=== PATIENT | female | born 1985 | race Caucasian/White ===

== ENCOUNTER 2018-03-25 08:23 | Outpatient (CLI) | payer OTHER ==
[~2018-03-25 08:23] MED LIST: ALBU8.5H5 INH; OXYC-302 PO; PREN1TAB56 PO
[2018-03-25] MEDS ORDERED: LACT1CAP35 PO (08:53)
== END 2018-03-25 23:59 | disposition home or self-care (01) ==
LOC: STAR 08:23
PROVIDERS: ATTEND Surgery Plastic and Reconstructive Surgery
DX: Z02.9 Encounter for administrative examinations, unspecified (principal)

== ENCOUNTER 2018-04-01 10:11 | Observation (INO) | payer OTHER ==
[~2018-04-01] VITALS: Ht 170.2 cm; Wt 83.2 kg
[~2018-04-01 10:11] MED LIST changes: +LACT1CAP35 PO
[2018-04-01] MEDS ORDERED: LACTATED RINGERS 1,000 ML IV SCH ×3 (10:26→19:00)
[2018-04-01] MEDS ORDERED: GABAPENTIN 300 MG CAPSULE PO ONE (10:30)
[2018-04-01] MEDS ORDERED: ONDANSETRON ODT 8 MG PO ONE (10:30)
[2018-04-01] MEDS ORDERED: ACETAMINOPHEN 500 MG TABLET PO ONE (10:30)
[2018-04-01 10:44] VITALS: BP 109/77
[2018-04-01 11:19] LABS: HCG UR SG 1.025 (1.003-1.030)
[2018-04-01] MEDS ORDERED: BUPIVACAINE/PF 0.25% ONE (12:47)
[2018-04-01] MEDS ORDERED: BUPIVACAINE/PF-EPI 0.5% 1:200K ONE (12:47)
[2018-04-01] MEDS ORDERED: SCOPOLAMINE PATCH, 1.5MG PATCH.TD72 TD ONE (12:50)
[2018-04-01] MEDS ORDERED: FENTANYL PF 250 MCG/5ML ONE (12:52)
[2018-04-01] MEDS ORDERED: MIDAZOLAM 1 MG/ML, 2ML ONE (12:52)
[2018-04-01] MEDS ORDERED: FENTANYL PF 100 MCG/2ML IV PRN (13:00)
[2018-04-01] MEDS ORDERED: METOPROLOL 1 MG/ML, 5ML IV PRN (13:00)
[2018-04-01] MEDS ORDERED: PROCHLORPERAZINE 5 MG/ML, 2ML IV PRN (13:00)
[2018-04-01] MEDS ORDERED: PROMETHAZINE 25 MG/ML, 1ML IV PRN (13:00)
[2018-04-01] MEDS ORDERED: hydrALAzine 20 MG/ML, 1ML IV PRN (13:00)
[2018-04-01] MEDS ORDERED: MEPERIDINE/PF 25MG/0.5ML IVPush PRN (13:00)
[2018-04-01] MEDS ORDERED: PROCHLORPERAZINE 25 MG SUPP PR PRN (13:00)
[2018-04-01] MEDS ORDERED: KETOROLAC 30 MG/1 ML ONE (13:00)
[2018-04-01] MEDS ORDERED: DIAZEPAM 5 MG/ML, 2ML IVPush PRN (13:00)
[2018-04-01] MEDS ORDERED: HYDROmorphone 2 MG/ML, 1ML IVPush PRN (13:00)
[2018-04-01] MEDS ORDERED: DIPHENHYDRAMINE 50 MG/ML, 1ML IVPush PRN (13:00)
[2018-04-01] MEDS ORDERED: OXYcodone 5 MG/5 ML ORAL.SOL UDC PO PRN (13:00)
[2018-04-01] MEDS ORDERED: LABETALOL 5MG/ML, 20ML IV PRN (13:00)
[2018-04-01] MEDS ORDERED: LIDOCAINE 1%, 20ML ONE (13:04)
[2018-04-01] MEDS ORDERED: LIDOCAINE 1%-EPI 1:100K, 30ML ONE (13:17)
[2018-04-01] MEDS ORDERED: FENTANYL PF 100 MCG/2ML ONE (16:01)
[2018-04-01] MEDS ORDERED: ONDANSETRON 2MG/ML, 2ML ONE (16:04)
[2018-04-01] MEDS ORDERED: SUCCINYLCHOLINE 20 MG/ML, 10ML ONE (16:04)
[2018-04-01] MEDS ORDERED: CEFAZOLIN 1,000 MG ONE (16:04)
[2018-04-01] MEDS ORDERED: DEXAMETHASONE 4 MG/ML, 1ML ONE (16:04)
[2018-04-01] MEDS ORDERED: GLYCOPYRROLATE 0.2MG/1ML, 5ML ONE (16:04)
[2018-04-01] MEDS ORDERED: PROPOFOL 10 MG/ML, 20ML ONE (16:04)
[2018-04-01] MEDS ORDERED: ROCURONIUM 10MG/ML,5ML ONE (16:04)
[2018-04-01] MEDS ORDERED: NEOSTIGMINE 1 MG/ML, 10ML ONE (16:04)
[2018-04-01] MEDS ORDERED: OXYcodone 5 MG/5 ML ORAL.SOL UDC ONE (17:15)
[2018-04-01] MEDS ORDERED: MEPERIDINE/PF 25MG/ML,1ML ONE (17:15)
[2018-04-01] MEDS ORDERED: PROMETHAZINE 25 MG/ML, 1ML ONE (17:21)
[2018-04-01] MEDS ORDERED: LACTOBACILLUS CHEW TABLET PO SCH (21:00)
== END 2018-04-01 23:47 | disposition home or self-care (01) ==
LOC: OUT 10:11 → 4NOR 18:35 → OUT 19:13
PROVIDERS: ADMIT Surgery Plastic and Reconstructive Surgery; ATTEND Surgery Plastic and Reconstructive Surgery
DX: N62 Hypertrophy of breast (principal); J45.909 Unspecified asthma, uncomplicated; D24.1 Benign neoplasm of right breast; D24.2 Benign neoplasm of left breast
CPT/HCPCS: 19318; 81025; 88305; C1729; G0378; J0330; J0690; J1100; J1885; J2175; J2250; J2405; J2550; J2704; J2710; J3010; J3490; J7120; Q0162

== ENCOUNTER 2019-03-15 05:31 | Inpatient (IN) | payer OTHER ==
[~2019-03-15] VITALS: Ht 170.2 cm; Wt 97.7 kg
[2019-03-15] MEDS ORDERED: LACTATED RINGERS 1,000 ML IV SCH (05:34)
[2019-03-15 05:47] VITALS: BP 127/85
[2019-03-15] MEDS ORDERED: NEWBORN KIT ONE (05:52)
[2019-03-15] MEDS ORDERED: PREN-3 PO (05:55)
[2019-03-15] MEDS ORDERED: METOCLOPRAMIDE 5 MG/ML, 2ML IV ONE (06:00)
[2019-03-15] MEDS ORDERED: SODIUM CITRATE/CITRIC ACID 30 ML UDC PO ONE (06:00)
[2019-03-15] MEDS ORDERED: LACTATED RINGERS 1,000 ML IVBOLUS ONE (06:00)
[2019-03-15] MEDS ORDERED: METOCLOPRAMIDE 5 MG/ML, 2ML ONE (06:17)
[2019-03-15] MEDS ORDERED: SODIUM CITRATE/CITRIC ACID 30 ML UDC ONE (06:17)
[2019-03-15] MEDS ORDERED: OXYTOCIN 30U/ 0.9% NaCL 500ML 500 ML ONE (06:17)
[2019-03-15 06:25] LABS: BASOPHILS # (AUTO) 0.02 x10^3/uL (0-0.1); BASOPHILS % (AUTO) 0 % (0-1); EOSINOPHILS # (AUTO) 0.09 x10^3/uL (0-0.4); EOSINOPHILS % (AUTO) 1 % (1-7); LYMPHOCYTES # (AUTO) 1.76 x10^3/uL (1-3.4); LYMPHOCYTES % (AUTO) 26 % (22-44); MD NO; MEAN CORPUSCULAR HEMOGLOBIN 28.7 pg (27.0-34.8); MEAN CORPUSCULAR HGB CONC 33.3 g/dL (32.4-35.8); MEAN CORPUSCULAR VOLUME 86.1 fL (80-100); MEAN PLATELET VOLUME 8.3 fL (7.4-10.4); MONOCYTES # (AUTO) 0.74 x10^3/uL (0.2-0.8); MONOCYTES % (AUTO) 11 % (2-9); NEUTROPHILS # (AUTO) 4.26 x10^3/uL (1.8-6.8); NEUTROPHILS % (AUTO) 62 % (42-75); PLATELET COUNT 186 x10^3/uL (130-400); RED BLOOD COUNT 4.18 x10^6/uL (3.82-5.3); RED CELL DISTRIBUTION WIDTH 14.3 % (9.6-15.2)
[2019-03-15] MEDS ORDERED: FENTANYL PF 100 MCG/2ML ONE (07:08)
[2019-03-15] MEDS ORDERED: OXYTOCIN 10 UNITS/ML, 1ML ONE (08:14)
[2019-03-15] MEDS ORDERED: CEFAZOLIN 1,000 MG ONE (08:14)
[2019-03-15] MEDS ORDERED: DIPHENHYDRAMINE 50 MG/ML, 1ML ONE (08:25)
[2019-03-15] MEDS ORDERED: KETOROLAC 30 MG/1 ML ONE (08:25)
[2019-03-15] MEDS: OXYTOCIN 30U/ 0.9% NaCL 500ML 500 ML IV SCH ×2 (08:55→18:55)
[2019-03-15] MEDS: LACTATED RINGERS 1,000 ML IV SCH ×4 (08:55→18:55)
[2019-03-15] MEDS ORDERED: ACETAMINOPHEN 325 MG TABLET PO PRN (09:00)
[2019-03-15] MEDS ORDERED: METOCLOPRAMIDE 5 MG/ML, 2ML IV PRN (09:00)
[2019-03-15] MEDS ORDERED: ONDANSETRON 2MG/ML, 2ML IV PRN ×2 (09:00)
[2019-03-15] MEDS ORDERED: MEASLES,MUMPS&RUBELLA VACC/PF 0.5 ML SQ-VACC PRN (09:00)
[2019-03-15] MEDS ORDERED: RHOGAM FROM BLOOD BANK 1 NOTE EA IM/IV ONE (09:00)
[2019-03-15] MEDS ORDERED: OXYcodone IR 5MG TABLET PO PRN (09:00)
[2019-03-15] MEDS ORDERED: SIMETHICONE 80 MG CHEW TAB PO PRN (09:00)
[2019-03-15] MEDS ORDERED: DEXAMETHASONE 4 MG/ML, 1ML IV PRN (09:00)
[2019-03-15] MEDS ORDERED: PROMETHAZINE 25 MG/ML, 1ML IV PRN (09:00)
[2019-03-15] MEDS ORDERED: CALCIUM CARBONATE 500 MG TAB.CHEW PO PRN (09:00)
[2019-03-15] MEDS ORDERED: morphine SULFATE 10 MG/ML, 1ML IVPush PRN ×2 (09:00)
[2019-03-15] MEDS ORDERED: MISOPROSTOL 200 MCG TABLET PR PRN (09:00)
[2019-03-15] MEDS ORDERED: OXYcodone 5 MG/5 ML ORAL.SOL UDC PO PRN (09:00)
[2019-03-15] MEDS ORDERED: MORPHINE SULFATE 4 MG/ML, 1ML IVPush PRN (09:00)
[2019-03-15] MEDS ORDERED: LABETALOL 5MG/ML, 20ML IV PRN (09:00)
[2019-03-15] MEDS: PRENATAL VIT/IRON/FA 1 EACH TABLET PO SCH (09:00)
[2019-03-15] MEDS ORDERED: FENTANYL PF 100 MCG/2ML IV PRN (09:00)
[2019-03-15] MEDS ORDERED: OXYcodone 5 MG/5 ML ORAL.SOL UDC ONE (10:46)
[2019-03-15 11:15] VITALS: BP 108/68
[2019-03-15] MEDS: OXYcodone IR 5MG TABLET PO PRN ×3 (13:20→21:48)
[2019-03-15] MEDS: KETOROLAC 30 MG/1 ML IV PRN ×2 (14:53→20:41)
[2019-03-15 19:40] VITALS: BP 113/64
[2019-03-15] MEDS: DOCUSATE 100 MG CAPSULE PO PRN (20:42)
[2019-03-15 20:56] LABS: BASOPHILS # (AUTO) 0.02 x10^3/uL (0-0.1); BASOPHILS % (AUTO) 0 % (0-1); EOSINOPHILS # (AUTO) 0.11 x10^3/uL (0-0.4); EOSINOPHILS % (AUTO) 1 % (1-7); LYMPHOCYTES # (AUTO) 1.65 x10^3/uL (1-3.4); LYMPHOCYTES % (AUTO) 19 % (22-44); MD NO; MEAN CORPUSCULAR HEMOGLOBIN 29.2 pg (27.0-34.8); MEAN CORPUSCULAR HGB CONC 33.6 g/dL (32.4-35.8); MEAN CORPUSCULAR VOLUME 86.9 fL (80-100); MEAN PLATELET VOLUME 8.1 fL (7.4-10.4); MONOCYTES # (AUTO) 0.77 x10^3/uL (0.2-0.8); MONOCYTES % (AUTO) 9 % (2-9); NEUTROPHILS # (AUTO) 6.32 x10^3/uL (1.8-6.8); NEUTROPHILS % (AUTO) 71 % (42-75); PLATELET COUNT 152 x10^3/uL (130-400); RED BLOOD COUNT 3.49 x10^6/uL (3.82-5.3); RED CELL DISTRIBUTION WIDTH 13.9 % (9.6-15.2)
[2019-03-16] VITALS: BP 105/66
[2019-03-16] MEDS: LACTATED RINGERS 1,000 ML IV SCH ×5 (00:55→16:55)
[2019-03-16] MEDS: OXYcodone IR 5MG TABLET PO PRN ×6 (02:05→22:30)
[2019-03-16] MEDS: KETOROLAC 30 MG/1 ML IV PRN (03:06)
[2019-03-16 03:10] VITALS: BP 107/74
[2019-03-16] MEDS: OXYTOCIN 30U/ 0.9% NaCL 500ML 500 ML IV SCH ×2 (04:55→14:55)
[2019-03-16 07:00] VITALS: BP 109/72
[2019-03-16] MEDS: DOCUSATE 100 MG CAPSULE PO PRN ×2 (10:13→22:29)
[2019-03-16] MEDS: IBUPROFEN 600 MG TABLET PO PRN ×2 (10:13→16:39)
[2019-03-16] MEDS: PRENATAL VIT/IRON/FA 1 EACH TABLET PO SCH (10:13)
[2019-03-16] MEDS: ACETAMINOPHEN 325 MG TABLET PO PRN ×2 (18:25→22:29)
[2019-03-16 19:15] VITALS: BP 101/64
[2019-03-17] MEDS: OXYTOCIN 30U/ 0.9% NaCL 500ML 500 ML IV SCH (00:55)
[2019-03-17] MEDS: LACTATED RINGERS 1,000 ML IV SCH ×2 (00:55)
[2019-03-17] MEDS: IBUPROFEN 600 MG TABLET PO PRN (01:50)
[2019-03-17] MEDS: OXYcodone IR 5MG TABLET PO PRN ×2 (03:02→08:29)
[2019-03-17] MEDS: ACETAMINOPHEN 325 MG TABLET PO PRN ×3 (03:02→12:09)
[2019-03-17 07:45] VITALS: BP 104/70
[2019-03-17] MEDS: DOCUSATE 100 MG CAPSULE PO PRN (08:28)
[2019-03-17] MEDS: PRENATAL VIT/IRON/FA 1 EACH TABLET PO SCH (08:28)
[2019-03-17] MEDS ORDERED: IBUP-1222 PO (11:23)
[2019-03-17] MEDS ORDERED: OXYC5CAP2 PO (11:25)
== END 2019-03-17 12:18 | disposition home or self-care (01) | DRG 788 ==
LOC: LDIP 05:31 → 2NW 11:20
PROVIDERS: ADMIT Obstetrics & Gynecology; ATTEND Obstetrics & Gynecology
PROC: 10D00Z1 Extraction of Products of Conception, Low, Open Approach (ICD-10-PCS; principal; 2019-03-15)
DX: O34.211 Maternal care for low transverse scar from previous cesarean delivery (principal); O99.52 Diseases of the respiratory system complicating childbirth; J45.909 Unspecified asthma, uncomplicated; Z3A.39 39 weeks gestation of pregnancy; Z37.0 Single live birth
CPT/HCPCS: 36415; 85025; 86592; 86850; 86900; G0378; J0690; J1885; J3010; J1200; J2590; J2765; J7120

== ENCOUNTER → 2020-05-14 | Outpatient (CLI) | payer OTHER ==
[~2020-05-14] MED LIST changes: +IBUP-1222 PO; +LIDOCAINE 1%, 10ML ONE; -OXYC-302 PO; +OXYC1TAB14 PO; +OXYC5CAP2 PO; +PREN-3 PO
== END | disposition home or self-care (01) ==
LOC: RAD 09:46
PROVIDERS: ATTEND Family Medicine
DX: E04.1 Nontoxic single thyroid nodule (principal); Z88.0 Allergy status to penicillin; Z79.899 Other long term (current) drug therapy
CPT/HCPCS: 10005; 88172; 88173; J3490